=== PATIENT | female | born 1975 | race Caucasian/White ===

== ENCOUNTER → 2018-06-12 | Outpatient (CLI) | payer OTHER ==
--- NOTE | 2018-06-12 18:11 | RAD ---
EXAM DESCRIPTION: Hand,Left 3 Views CLINICAL HISTORY: PAIN COMPARISON: None Available. TECHNIQUE: AP, LATERAL, AND OBLIQUE FINDINGS: Three-view left hand shows no fracture or dislocation. There is no bone lesion. There are no significant arthritic changes. There is no radiopaque foreign body. IMPRESSION: Negative for fracture or dislocation. Electronically signed by: Nolan Xie MD 06/12/2018 6:09 PM [facility]
== END ==
LOC: RAD 15:21
PROVIDERS: ATTEND Orthopaedic Surgery
DX: M79.642 Pain in left hand (principal); M25.532 Pain in left wrist

== ENCOUNTER → 2018-11-26 | Outpatient (CLI) | payer OTHER | LOC: LAB.O 15:13 | PROVIDERS: ATTEND Family Medicine | DX: R35.0 Frequency of micturition (principal) ==